=== PATIENT | female | born 1965 | race Caucasian/White ===

== ENCOUNTER 2025-06-16 07:17 | Day surgery (SDC) | payer OTHER ==
[~2025-06-16 07:17] MED LIST: Midazolam 1 MG/ML 2 ML SDV ONE; Propofol 200 MG/20 ML SDV ONE; fentaNYL 50 MCG/ML SDV ONE
[2025-06-16] MEDS: Lactated Ringers 1,000 ML IV SCH (07:33)
[2025-06-16] MEDS ORDERED: Propofol 200 MG/20 ML SDV ONE (08:24)
== END 2025-06-16 10:00 | disposition home or self-care (01) ==
LOC: JP.SDS 07:17
PROVIDERS: ATTEND Surgery
DX: Z12.11 Encounter for screening for malignant neoplasm of colon (principal); K22.70 Barrett's esophagus without dysplasia; K63.5 Polyp of colon; I10 Essential (primary) hypertension; E11.9 Type 2 diabetes mellitus without complications; Z88.0 Allergy status to penicillin
CPT/HCPCS: 00813; 43239; 45380; J2250; J2704; J3010; J7120; 88305